=== PATIENT | male | born 1950 | race Caucasian/White ===

== ENCOUNTER 2020-08-24 04:26 | Day surgery (SDC) | payer OTHER ==
[2020-08-20 16:26] VITALS: BMI 29.0
[2020-08-24] MEDS ORDERED: MIDAZOLAM HCL 2 MG/2 ML SINGLE DOSE VIAL ONE ×2 (14:17)
[2020-08-24 16:24] VITALS: BP 132/70; PULSE 64; TEMP 98
== END 2020-08-24 16:15 | disposition home or self-care (01) ==
LOC: JASU-SURG 04:26
PROVIDERS: ATTEND Urology
PROC: 0TF4XZZ Fragmentation in Left Kidney Pelvis, External Approach (ICD-10-PCS; principal; 2020-08-24 13:00)
DX: N20.0 Calculus of kidney (principal)

== ENCOUNTER 2021-02-22 04:16 | Day surgery (SDC) | payer OTHER ==
[2021-02-18 12:01] VITALS: BMI 29.0
[2021-02-22] MEDS ORDERED: PROPOFOL 20 ML ONE ×3 (09:18)
[2021-02-22] MEDS ORDERED: ALBUTEROL SO4 0.083% IH SOL 2.5 MG/3 ML VIAL.NEB. NEB ONE (13:08)
[2021-02-22 14:10] VITALS: BP 144/71; PULSE 72; TEMP 98
== END 2021-02-22 12:20 | disposition home or self-care (01) ==
LOC: JASU-SURG 04:16
PROVIDERS: ATTEND Urology
PROC: 0TF3XZZ Fragmentation in Right Kidney Pelvis, External Approach (ICD-10-PCS; principal; 2021-02-22 09:30)
DX: N20.0 Calculus of kidney (principal)
CPT/HCPCS: 94760

== ENCOUNTER 2023-05-01 04:05 | Day surgery (SDC) | payer OTHER ==
[2023-04-27 17:33] VITALS: BMI 28.1
[2023-05-01] MEDS ORDERED: FENTANYL CITRATE/PF 50 MCG/ML VIAL ONE (09:20)
[2023-05-01] MEDS ORDERED: MIDAZOLAM HCL 2 MG/2 ML SINGLE DOSE VIAL ONE (09:20)
[2023-05-01 10:52] VITALS: RESP 18
[2023-05-01 11:01] VITALS: BP 147/53; PULSE 62; TEMP 98
== END 2023-05-01 10:35 | disposition home or self-care (01) ==
LOC: JASU-SURG 04:05
PROVIDERS: ATTEND Urology
PROC: 0TF4XZZ Fragmentation in Left Kidney Pelvis, External Approach (ICD-10-PCS; principal; 2023-05-01 09:00)
DX: N20.0 Calculus of kidney (principal)